=== PATIENT | female | born 1950 | race Caucasian/White ===

== ENCOUNTER 2022-07-04 22:25 | Emergency (ER) | payer MEDICARE, OTHER ==
[2022-07-05 00:53] LABS: HCT 39.1 % (37.0-47.0); HGB 13.2 g/dl (12.5-16.0); MCHC 33.8 g/dL (32.0-36.0); MCV 88.9 fL (78.0-100.0); MPV 10.1 fL (6.0-9.5); RBC 4.4 M/uL (4.20-5.40); RDW 12.8 % (11.5-14.0); WBC 14.8 K/uL (4.0-10.5)
[2022-07-05 01:07] LABS: BUN/CREAT RATIO (CALC) 20.2 RATIO; CREATININE 0.94 mg/dL (0.51-0.95); POTASSIUM 3.9 mmol/L (3.5-5.1)
--- NOTE | 2022-07-05 09:41 | NUR ---
07/05/22 Patient presented to ED and was dx with a fractured knee. ED requested a HH referral. A referral was made to [facility] per patient choice.
== END 2022-07-05 09:33 | disposition home or self-care (01) ==
LOC: FER 22:25
PROVIDERS: Emergency Medicine
DX: S82.001A Unspecified fracture of right patella, initial encounter for closed fracture (principal); M79.601 Pain in right arm; M54.50 Low back pain, unspecified; Z28.310 Unvaccinated for COVID-19; Z88.0 Allergy status to penicillin; Z88.1 Allergy status to other antibiotic agents; Z88.5 Allergy status to narcotic agent; Z88.6 Allergy status to analgesic agent; Z88.7 Allergy status to serum and vaccine; W01.0XXA Fall on same level from slipping, tripping and stumbling without subsequent striking against object, initial encounter; Y92.009 Unspecified place in unspecified non-institutional (private) residence as the place of occurrence of the external cause
CPT/HCPCS: 36415; 70450; 71250; 72125; 72128; 72131; 73030; 73060; 73552; 73560; 73700; 80048; 96374; 96375; 96376; J2270; J2405